=== PATIENT | male | born 1945 ===

== ENCOUNTER 2021-12-13 10:59 | Day surgery (SDC) | payer MEDICARE ==
[~2021-12-13] VITALS: Ht 172.7 cm; Wt 89.2 kg
[~2021-12-13 10:59] MED LIST: AMIT25; ATEN25; DIAZ10; EFFEXOR; GABA300; MORPHINE; OXYC5 PO; PRAV20 PO; TRAZ50 PO; [UNRECOGNIZED DRUG - OTHER]; [UNRECOGNIZED DRUG - OTHER] PO
[2021-12-13] MEDS ORDERED: AMBIEN5 MG (11:41)
[2021-12-13] MEDS ORDERED: DRIZALMA SPRINK20 MG (11:41)
[2021-12-13] MEDS ORDERED: ATOR10 (11:41)
[2021-12-13] MEDS ORDERED: ASPI81CH (11:42)
== END 2021-12-13 13:14 | disposition home or self-care (01) ==
LOC: ORSCSDS 10:59
PROVIDERS: Internal Medicine Gastroenterology
PROC: 0DJD8ZZ Inspection of Lower Intestinal Tract, Via Natural or Artificial Opening Endoscopic (ICD-10-PCS; principal; 2021-12-13 12:15)
DX: Z12.11 Encounter for screening for malignant neoplasm of colon (principal); Z86.010 Personal history of colon polyps; Z95.1 Presence of aortocoronary bypass graft; Z79.899 Other long term (current) drug therapy
CPT/HCPCS: J2704; J7120

== ENCOUNTER 2022-01-04 12:33 | Emergency (ER) | payer MEDICARE ==
[~2022-01-04] VITALS: Ht 172.7 cm; Wt 90.7 kg
[~2022-01-04 12:33] MED LIST changes: +AMBIEN5 MG; +ASPI81CH; +ATOR10; +DRIZALMA SPRINK20 MG
[2022-01-04] MEDS ORDERED: LIDO700A20 TOP (14:42)
[2022-01-04] MEDS ORDERED: PRED20 PO (14:42)
[2022-01-04] MEDS ORDERED: CYCL10 PO (14:42)
== END 2022-01-04 14:46 | disposition home or self-care (01) ==
LOC: ER 12:33
DX: M54.16 Radiculopathy, lumbar region (principal); I10 Essential (primary) hypertension; E78.5 Hyperlipidemia, unspecified; Z98.2 Presence of cerebrospinal fluid drainage device; Z79.82 Long term (current) use of aspirin; Z79.899 Other long term (current) drug therapy; Z87.891 Personal history of nicotine dependence
CPT/HCPCS: A9270; J1100; J1885